=== PATIENT | male | born 1985 | race Caucasian/White ===

== ENCOUNTER 2022-04-05 02:17 | Emergency (ER) | payer OTHER ==
[~2022-04-05] VITALS: Ht 185.4 cm; Wt 90.6 kg
== END 2022-04-05 04:33 | disposition home or self-care (01) ==
LOC: ED 02:17
DX: R10.30 Lower abdominal pain, unspecified (principal)
CPT/HCPCS: 36415; 74177; 80053; 81003; 83690; 85025; 99284-25; J2405; Q9967